=== PATIENT | female | born 1940 | race Caucasian/White ===

== ENCOUNTER 2016-10-23 23:59 | Inpatient (IN) | payer MEDICARE ==
--- NOTE | ~2016-10-23 | HP ---
History And Physical [place] [id number] [facility] [place]. [address] NAME: JOHNSON LAGUNAS : 40 STATUS : REG ER PAT#: [id number] AGE: 76 ADM/REG DATE : 10/23/16 MR#: [id number] REPORT SERV DATE: 10/24/16 DICTATED BY: SUMAN ALBERTO DATE: 10/24/16 REPORT STATUS : Draft TRANSCRIBED BY: MODCristian DATE: 10/24/16 DATE OF ADMISSION: 10/23/2016 POINT OF ENTRY: [facility] Emergency Department. CHIEF COMPLAINT: Fevers, not feeling well, herpes zoster. HISTORY OF PRESENT ILLNESS: Ms Lagunas is a 76-year-old female with a history of hypertension, mmt-vyhmgfv-ctmruecwy diabetes mellitus type 2, rheumatoid arthritis, osteoarthritis, and recent diagnosis of herpes zoster infection, who presents to the emergency department today with a few day history of subjective fevers, chills, weakness, and generally not feeling well. The patient states that she developed the erythematous vesicular rash over her upper right chest, arm, and back on Wednesday. She was placed on acyclovir by Dr. Welch on around Wednesday. The patient is a poor historian. It is unclear the timing of the events of this week, but at some point in time she was also placed on Augmentin for unclear reasons and unclear infectious source. Despite being on appropriate therapy for her herpes zoster as well as being on Augmentin, the patient reports that for the past few days she has continued to have subjective fevers, night sweats, and chills. She does not have a thermometer, so we do not actually have values on the degree of her fevers. She denies any chest pain, palpitations, shortness of breath, cough, sputum production, abdominal pain, nausea, vomiting, diarrhea, constipation, dysuria, lower extremity edema, melena, hematochezia, or hemoptysis. Initial evaluation in the emergency department notable for a white count that is normal. Procalcitonin mildly elevated at 0.61; however, lactic acid was within normal limits. Chest x-ray is clear. Urinalysis is clear. However, she was noted to be febrile to 101.2 degrees Fahrenheit, and mildly tachycardic at 118. She was subsequently admitted to the Hospitalist Service for further evaluation and management. REVIEW OF SYSTEMS: Comprehensive review of system otherwise negative unless listed in history of present illness. PREVIOUS MEDICAL HISTORY: 1. Hypertension. 2. Paz-kxuakvc-vzykagcaj diabetes mellitus type 2. 3. Rheumatoid arthritis. 4. Osteoarthritis. 5. Depression. 6. History of uterine cancer status post hysterectomy. SURGICAL HISTORY: 1. Right incisional hernia repair. History And Physical [address] [address] NAME: JOHNSON LAGUNAS : 40 STATUS : REG ER PAT#: [id number] AGE: 76 ADM/REG DATE : 10/23/16 MR#: [id number] REPORT SERV DATE: 10/24/16 DICTATED BY: SUMAN ALBERTO DATE: 10/24/16 REPORT STATUS : Draft TRANSCRIBED BY: CLAY DATE: 10/24/16 2. Hysterectomy. 3. Hip replacement. 4. Cholecystectomy. 5. L2-L5 hemilaminectomy and fusion. ALLERGIES: TO SULFA DRUGS AND MORPHINE. HOME MEDICATIONS: Pending at the time of dictation. SOCIAL HISTORY: Denies any tobacco, alcohol, or illicits. FAMILY MEDICAL HISTORY: Mother of old age in her 90s. Father as well as siblings lung cancer. LABS AND IMAGIN. White count 7.4, hemoglobin 11.4, hematocrit 33.2, platelet count is 254, and INR 1.1. 2. Sodium is 128, potassium 3.9, chloride 92, carbon dioxide 28, BUN 16, creatinine 1.04, glucose is 165, calcium is 9.3, protein is 7.3, albumin is 3.0, bilirubin is 0.5, ALT is 48, AST 31, alkaline phosphatase is 49. 3. Lactic acid is 1.2. Procalcitonin is 0.61. 4. Chest x-ray per my review shows no acute cardiopulmonary abnormality. 5. Urinalysis; spec gravity was 1.011 with no evidence of any infection. PHYSICAL EXAMINATION: VITAL SIGNS: Temperature is 101.2 degrees Fahrenheit, pulse is 118, respirations 18, saturating 93% on room air, and blood pressure is 151/73, on recheck blood pressure is now 158/67 with a pulse of 100. GENERAL: The patient is awake, alert, and in no acute distress. Nontoxic appearing elderly female. HEENT: Atraumatic and normocephalic. Moist mucous membranes. Pupils are equal, round, reactive to light and accommodation. Extraocular eye movements intact. No scleral icterus. NECK: No jugular venous distention. No carotid bruits. CARDIAC: Regular rate and rhythm. No murmurs or gallops. Normal S1, S2. LUNGS: Clear to auscultation bilaterally. No wheezes, rhonchi, or crackles. ABDOMEN: Obese, soft, nontender, and nondistended. Good bowel sounds. No rebound, guarding, or rigidity. EXTREMITIES: Warm and perfused. No cyanosis, clubbing, or edema. SKIN: The patient has an erythematous vesicular rash over the upper right chest which extends into the upper right deltoid region as well as the upper right back. Some of the vesicles have started to crust over. I do not appreciate any superimposed purulent drainage suggestive of overlying cellulitis. PSYCH: Affect appropriate. NEURO: Alert and oriented x3. Cranial nerves 2 through 12 grossly intact. Speech is normal. Gait not assessed. ASSESSMENT AND PLAN: Ms Lagunas is a 76-year-old female with recent herpes zoster infection, who presents with persistent fevers of unclear etiology. History And Physical [address] [address] NAME: JOHNSON LAGUNAS : 40 STATUS : REG ER PAT#: [id number] AGE: 76 ADM/REG DATE : 10/23/16 MR#: [id number] REPORT SERV DATE: 10/24/16 DICTATED BY: SUMAN ALBERTO DATE: 10/24/16 REPORT STATUS : Draft TRANSCRIBED BY: CLAY DATE: 10/24/16 PROBLEM LIST: 1. Herpes zoster. 2. Systemic inflammatory response syndrome. 3. Hyponatremia. 4. Hypertension. 5. Auw-rgrreby-poxrybizh diabetes mellitus type 2. PLAN: 1. Herpes zoster. Continue the patient's oral acyclovir. We will also consult Wound Care for assistance. I do not appreciate any superimposed bacterial cellulitis at this time. 2. Systemic inflammatory response with tachycardia and fevers. I have an unclear source of her SIRS at this time; possibilities does include her underlying herpes zoster. Chest x-ray is clear. Urinalysis is unremarkable. I do not appreciate any evidence of cellulitis and on exam and history I do not appreciate any other possible infectious sources. We will check an ESR and CRP. Follow up blood cultures obtained in the ER. Provide supportive care with IV fluid hydration. We will hold off on any further antibiotics at this time as drug fever is also a possibility as she is on Augmentin. 3. Hyponatremia, unclear etiology. Likely related to her underlying herpes zoster and fevers such as SIADH. We will check urine lytes as well as serum osms. Provide IV fluid hydration. 4. Hypertension. Continue the patient's home medications. 5. Vao-ersybqf-xffnjrdzf diabetes mellitus type 2. Holding the patient's oral hypoglycemics. Place her on level 2 sliding scale. 6. DVT prophylaxis. Lovenox subcu. CODE STATUS: The patient wishes to be full code. JCB/MODL Suman Alberto MD / [id number] CC: Jose Welch MD
--- NOTE | ~2016-10-23 | DS ---
Discharge Summary [facility] [address] [place]. [address] NAME: JOHNSON JOHNSON : 40 STATUS : DIS IN PAT#: [id number] AGE: 76 ADM/REG DATE : 10/24/16 MR#: [id number] REPORT SERV DATE: 10/28/16 DICTATED BY: MIRACLE PÉREZ DATE: 10/27/16 REPORT STATUS : Draft TRANSCRIBED BY: MODL DATE: 10/27/16 ADMISSION DATE: 10/24/2016 DISCHARGE DATE: 10/27/2016 HOSPITAL COURSE: The patient is a 76-year-old female with a history of hypertension, diabetes type 2, rheumatoid arthritis, and depression who presented to the hospital with a complaint of generally feeling unwell and herpes zoster. For further details, please refer to H and P dictated by Dr. Rankin on 10/24/2016. I assumed care of the patient today, 10/27/2016. At the time of my assumption of care, the patient was hemodynamically stable. Briefly, the patient presented to the emergency room, a vesicular rash was noted on the right fourth dermatome consistent with her herpes zoster. The patient was started on acyclovir with progressive improvement in her symptoms. Also, at the time of patient's presentation, the patient was noted to be in SIRS and was managed accordingly with subsequent resolution. Her hyponatremia at the time of presentation has also been treated. Last labs obtained for the patient were on 10/25/2016. Those labs were relatively within normal limits in terms of the patient's hyponatremia. On physical exam, the patient remains hemodynamically stable. Her blood pressure today remains elevated because the patient is on hydrochlorothiazide 25 mg which was not restarted in the hospital setting. Also, her elevated blood pressure count during this hospitalization can also be due to as a complication of her underlying pain given her symptoms. The patient is hemodynamically stable. Given significant improvement in her symptoms, the patient will be discharged to home today with home health and a quick followup appointment with her primary care physician. Plan has been discussed with the patient, who voices understanding and is agreeable with this plan. For further information, please refer to my note in the chart for physical exam. DISCHARGE EXAM: 1. Herpes zoster. 2. SIRS. 3. Urticaria. 4. Hyponatremia. 5. Hypertension. 6. Diabetes type 2. 7. RA and DJD. DISCHARGE PHYSICAL EXAMINATION: VITAL SIGNS: Blood pressure 149/67 with a pulse of 93, respiration 18, O2 saturation 95% on room air. GENERAL: The patient was lying sitting in chair, in no acute distress. Appears stated age. HEENT: Normocephalic and atraumatic. Extraocular motors intact. Moist oral mucosa. No conjunctival injection. Anicteric sclerae. NECK: Trachea midline and symmetric. No JVD noted. No thyromegaly present. No lymphadenopathy noted. CHEST: Nontender to palpation. Vesicular rash noted on the right proximal around the fourth dermatome, also it appears erythema plus lesions consistent with herpes zoster. LUNGS: Clear to auscultation bilaterally. Discharge Summary [address] [address] NAME: JOHNSON JOHNSON : 40 STATUS : DIS IN PAT#: [id number] AGE: 76 ADM/REG DATE : 10/24/16 MR#: [id number] REPORT SERV DATE: 10/28/16 DICTATED BY: MIRACLE PÉREZ DATE: 10/27/16 REPORT STATUS : Draft TRANSCRIBED BY: CLAY DATE: 10/27/16 CARDIOVASCULAR: Regular rate and rhythm. S1, S2. No murmurs, rubs, or gallops. ABDOMEN: Positive bowel sounds. Soft, nontender. No organomegaly noted. EXTREMITIES: No cyanosis, no clubbing, no edema. DISCHARGE MEDICATIONS: Acyclovir 800 mg p.o. five times a day, amlodipine 10 mg p.o. daily, Cymbalta 60 mg p.o. daily, fenofibrate 145 mg p.o. daily, lisinopril 40 mg p.o. daily, Mobic 15 mg p.o. daily, Lopressor 25 mg p.o. twice a day, metformin 1000 mg p.o. twice a day, hydrochlorothiazide 25 mg p.o. daily, Xanax 0.5 mg p.o. twice a day p.r.n. [place] one tab p.o. q.6 hours p.r.n. DISPOSITION: The patient will be discharged to home with home health, PT, and RN. ACTIVITY: As tolerated. DIET: As tolerated. DISPOSITION: Greater than 30 minutes was spent coordinating care, providing counseling, dictation of note, medication reconciliation. DICTATED BY: MD DON De Anda/CLAY Miracle Pérez MD / [id number] CC: MD HUGO De Anda DANIEL MARTIN
[~2016-10-23 23:59] MED LIST: AMARYL4 PO; ASAB PO; CYMBALTA30 PO; ENABLEX15 PO; GLUCOPHAGE1000 MG PO; HYDROCHLOROT25 MG PO; LEXAPRO10 PO; LORTAB 5 PO; MOBIC15 MG PO; MYRBETRIQ50 MG PO; NORCO1 TAB PO; NORV10 PO; PRIN20 PO; TRICOR145 PO; X5 PO
[2016-10-24 01:27] LABS: BASOPHILS 0.7 %; BASOPHILS ABSOLUTE 0.05 10/3/uL (0.0-0.16); EOSINOPHILS 0.1 %; EOSINOPHILS ABSOLUTE 0.01 10/3/uL (0.0-0.53); HEMATOCRIT 33.2 % (36.0-48.0); HEMOGLOBIN 11.4 g/dL (12.0-16.0); IMMATURE GRANULOCYTES 0.3 %; IMMATURE GRANULOCYTES ABSOLUTE 0.02 10/3/uL (0.0-0.11); LYMPHOCYTES 35.7 %; LYMPHOCYTES ABSOLUTE 2.63 10/3/uL (0.67-4.30); MEAN CORPUSCULAR HEMOGLOB 26.8 pg (26.0-34.0); MEAN PLATELET VOLUME 9.6 fL (9.2-13.0); MONOCYTES 12.8 %; MONOCYTES ABSOLUTE 0.94 10/3/uL (0.21-1.20); NEUTROPHILS 50.4 %; NEUTROPHILS ABSOLUTE 3.72 10/3/uL (2.02-8.40); RBC DISTRIBUTION WIDTH 14.6 % (12.0-16.0); RED CELL COUNT 4.25 10/6/uL (4.0-5.6); WHITE BLOOD CELLS 7.4 10/3/uL (4.5-10.5)
[2016-10-24 01:28] LABS: MANUAL DIFF NO %; MEAN CORPUS HGB CONC 34.3 g/dL (32.0-36.0); MEAN CORPUSCULAR VOLUME 78.1 fL (80-100); PLATELET COUNT 254 10/3/uL (150-400)
[2016-10-24 01:36] LABS: INTERNATIONAL NORMAL RATI 1.1 UNITS (-); PARTIAL THROMBO TIME 31.4 SEC (22.5-37.2)
[2016-10-24 01:42] LABS: A/G RATIO 0.7 (0.7-1.9); ALKALINE PHOSPHATASE 49 U/L (45-117); BUN (BLOOD UREA NITROGEN) 16 MG/DL (6-23); CALCIUM, SERUM 9.3 MG/DL (8.5-10.4); CHLORIDE, SERUM 92 MMOL/L (96-112); CO2 (CARBON DIOXIDE) 28 MMOL/L (24-34); CREATININE 1.04 MG/DL (0.55-1.02); GFR AFRICAN AMERICAN 60 ML/MIN (>=60); GFR NON AFRICAN AMERICAN 52 ML/MIN (>=60); GLOBULIN 4.3 G/DL (2.5-4.1); GLUCOSE, SERUM 165 MG/DL (60-99); POTASSIUM, SERUM 3.9 MMOL/L (3.5-5.3); SGOT(AST) 31 U/L (5-40); SGPT(ALT) 48 U/L (5-65); SODIUM, SERUM 128 MMOL/L (135-148); TOTAL BILIRUBIN 0.5 MG/DL (0-1.2); TOTAL PROTEIN 7.3 G/DL (6.0-8.5)
[2016-10-24 01:44] LABS: LACTATE 1.2 MMOL/L (0.3-2.4)
[2016-10-24 02:10] LABS: PROCALCITONIN 0.61 ng/mL (<0.5)
[2016-10-24 03:29] LABS: ASCORBIC ACID (UR NOT ORDER) NEG (NEG); BILIRUBIN, URINE NEGATIVE (NEG); ER URINALYSIS TAT 0 Hrs 00 Mins; KETONE, URINE NEGATIVE (NEG); LEUKOCYTE ESTERASE(NOT OR NEG (NEG); NITRITE (URINE) NEG (NEG); WBC (NOT ORDERED) (RFLEX) 1 (0-5)
[2016-10-24] MEDS ORDERED: AUG500 PO (03:38)
[2016-10-24] MEDS ORDERED: ZOVI800 PO (03:38)
[2016-10-24] MEDS ORDERED: ZOFRAN4 PO (03:40)
[2016-10-24] MEDS ORDERED: *UNABLE1 (03:49)
[2016-10-24 09:13] LABS: FREE T4 1.53 NG/DL (0.76-1.46); ULTRASENSITIVE TSH 1.21 MCIU/ML (0.358-3.740)
[2016-10-24 11:22] LABS: GLYCOHEMOGLOBIN (HbA1c) 7.5 % (4.7-6.1)
[2016-10-24 13:11] LABS: BASOPHILS 1.2 %; BASOPHILS ABSOLUTE 0.08 10/3/uL (0.0-0.16); EOSINOPHILS 0.1 %; EOSINOPHILS ABSOLUTE 0.01 10/3/uL (0.0-0.53); HEMATOCRIT 31.9 % (36.0-48.0); HEMOGLOBIN 11.1 g/dL (12.0-16.0); IMMATURE GRANULOCYTES 0.3 %; IMMATURE GRANULOCYTES ABSOLUTE 0.02 10/3/uL (0.0-0.11); LYMPHOCYTES 42.1 %; LYMPHOCYTES ABSOLUTE 2.83 10/3/uL (0.67-4.30); MEAN CORPUS HGB CONC 34.8 g/dL (32.0-36.0); MEAN CORPUSCULAR HEMOGLOB 27.1 pg (26.0-34.0); MEAN PLATELET VOLUME 9.3 fL (9.2-13.0); MONOCYTES 14.4 %; MONOCYTES ABSOLUTE 0.97 10/3/uL (0.21-1.20); NEUTROPHILS 41.9 %; NEUTROPHILS ABSOLUTE 2.82 10/3/uL (2.02-8.40); PLATELET COUNT 254 10/3/uL (150-400); RBC DISTRIBUTION WIDTH 14.5 % (12.0-16.0); RED CELL COUNT 4.09 10/6/uL (4.0-5.6); WHITE BLOOD CELLS 6.7 10/3/uL (4.5-10.5)
[2016-10-24 13:21] LABS: BUN (BLOOD UREA NITROGEN) 15 MG/DL (6-23); CALCIUM, SERUM 9.3 MG/DL (8.5-10.4); CHLORIDE, SERUM 99 MMOL/L (96-112); CO2 (CARBON DIOXIDE) 26 MMOL/L (24-34); CREATININE 0.94 MG/DL (0.55-1.02); GFR AFRICAN AMERICAN 68 ML/MIN (>=60); GFR NON AFRICAN AMERICAN 59 ML/MIN (>=60); GLUCOSE, SERUM 157 MG/DL (60-99); POTASSIUM, SERUM 3.6 MMOL/L (3.5-5.3); SODIUM, SERUM 133 MMOL/L (135-148)
[2016-10-24 14:07] LABS: MANUAL DIFF NO %
[2016-10-24 14:49] LABS: CREATININE, URINE 81.2 MG/DL
[2016-10-25 05:25] LABS: HEMATOCRIT 32.8 % (36.0-48.0); MEAN CORPUS HGB CONC 33.5 g/dL (32.0-36.0); MEAN CORPUSCULAR HEMOGLOB 26.6 pg (26.0-34.0); MEAN CORPUSCULAR VOLUME 79.4 fL (80-100); MEAN PLATELET VOLUME 9.5 fL (9.2-13.0); PLATELET COUNT 314 10/3/uL (150-400); RBC DISTRIBUTION WIDTH 14.9 % (12.0-16.0); RED CELL COUNT 4.13 10/6/uL (4.0-5.6); WHITE BLOOD CELLS 6.3 10/3/uL (4.5-10.5)
[2016-10-25 05:29] LABS: MANUAL DIFF YES %
[2016-10-25 05:38] LABS: BUN (BLOOD UREA NITROGEN) 15 MG/DL (6-23); CALCIUM, SERUM 9.6 MG/DL (8.5-10.4); CHLORIDE, SERUM 101 MMOL/L (96-112); CO2 (CARBON DIOXIDE) 24 MMOL/L (24-34); CREATININE 1.01 MG/DL (0.55-1.02); GFR AFRICAN AMERICAN 63 ML/MIN (>=60); GFR NON AFRICAN AMERICAN 54 ML/MIN (>=60); GLUCOSE, SERUM 139 MG/DL (60-99); POTASSIUM, SERUM 3.9 MMOL/L (3.5-5.3); SODIUM, SERUM 134 MMOL/L (135-148)
[2016-10-25 06:09] LABS: BAND NEUTROPHILS 1 %; EOSINOPHILS 1 %; EOSINOPHILS ABSOLUTE (CALC) 0.06 10/3/uL (0.0-0.53); LYMPHOCYTES 35 %; LYMPHOCYTES ABSOLUTE (CALC) 2.21 10/3/uL (0.67-4.30); MONOCYTES 22 %; MONOCYTES ABSOLUTE (CALC) 1.39 10/3/uL (0.21-1.20); NEUTROPHILS ABSOLUTE (CALC) 2.65 10/3/uL (2.02-8.40); PLATELET ESTIMATE ADQ (ADEQUATE); SEGMENTED NEUTROPHIL (0) 41 %; TOTAL NUCLEATED CELLS 100
[2016-10-25 06:10] LABS: RBC MORPHOLOGY NORM (NORMAL)
[2016-10-25 18:55] LABS: PROCALCITONIN 0.41 ng/mL (<0.5)
[2016-10-26 10:36] LABS: BUN (BLOOD UREA NITROGEN) 15 MG/DL (6-23); CALCIUM, SERUM 10.2 MG/DL (8.5-10.4); CHLORIDE, SERUM 101 MMOL/L (96-112); CO2 (CARBON DIOXIDE) 24 MMOL/L (24-34); CREATININE 0.89 MG/DL (0.55-1.02); GFR AFRICAN AMERICAN 73 ML/MIN (>=60); GFR NON AFRICAN AMERICAN 63 ML/MIN (>=60); GLUCOSE, SERUM 138 MG/DL (60-99); POTASSIUM, SERUM 3.9 MMOL/L (3.5-5.3); SODIUM, SERUM 135 MMOL/L (135-148)
[2016-10-27 05:53] LABS: BUN (BLOOD UREA NITROGEN) 14 MG/DL (6-23); CHLORIDE, SERUM 103 MMOL/L (96-112); CO2 (CARBON DIOXIDE) 23 MMOL/L (24-34); CREATININE 0.83 MG/DL (0.55-1.02); GFR AFRICAN AMERICAN 79 ML/MIN (>=60); GFR NON AFRICAN AMERICAN 68 ML/MIN (>=60); GLUCOSE, SERUM 153 MG/DL (60-99); POTASSIUM, SERUM 3.9 MMOL/L (3.5-5.3); SODIUM, SERUM 136 MMOL/L (135-148)
[2016-10-27] MEDS ORDERED: LOP25 PO (10:13)
== END 2016-10-27 14:04 | disposition home or self-care (01) | DRG 596 ==
LOC: ER 23:59 → 5NO 10-24 05:28
PROVIDERS: Emergency Medicine; Hospitalist; Internal Medicine
DX: B02.9 Zoster without complications (principal); E11.9 Type 2 diabetes mellitus without complications; E87.1 Hypo-osmolality and hyponatremia; I10 Essential (primary) hypertension
CPT/HCPCS: 71010; 80048; 80053; 81001; 82550; 82570; 82962; 83036; 83605; 83735; 83880; 83930; 83935; 84145; 84300; 84439; 84443; 85025; 85610; 85652; 85730; 87040; 93005; 97161-GP; 97165-GO; 99285; A9270-GY; J0360